=== PATIENT | male | born 1950 | race Caucasian/White ===

== ENCOUNTER → 2016-11-19 | Outpatient (CLI) | payer OTHER | LOC: CIMAGING 08:01 | PROVIDERS: ATTEND Physician Assistant | DX: B18.2 Chronic viral hepatitis C (principal); R16.0 Hepatomegaly, not elsewhere classified; K76.0 Fatty (change of) liver, not elsewhere classified; K80.20 Calculus of gallbladder without cholecystitis without obstruction | CPT/HCPCS: 76705-PO; 80053-PO; 85025-PO; 85610-PO ==

== ENCOUNTER → 2017-07-03 | Outpatient (CLI) | payer OTHER | LOC: CIMAGING 13:17 | PROVIDERS: ATTEND Physician Assistant | DX: B18.2 Chronic viral hepatitis C (principal); K76.0 Fatty (change of) liver, not elsewhere classified; K80.20 Calculus of gallbladder without cholecystitis without obstruction | CPT/HCPCS: 76705-PO ==

== ENCOUNTER → 2018-01-15 | Outpatient (CLI) | payer OTHER | LOC: FIMAGING 14:22 | PROVIDERS: ATTEND Internal Medicine | DX: K76.0 Fatty (change of) liver, not elsewhere classified (principal) ==